=== PATIENT | female | born 1960 | race Caucasian/White ===

== ENCOUNTER 2016-11-18 23:01 | Emergency (ER) | payer BC ==
[~2016-11-18] VITALS: Ht 162.6 cm; Wt 100.0 kg
[2016-11-18] MEDS ORDERED: DAPA5TAB PO (23:14)
[2016-11-18] MEDS ORDERED: LIRA3PEN SQ (23:14)
[2016-11-18] MEDS ORDERED: METF10002 PO (23:14)
[2016-11-18 23:34] LABS: APPEARANCE,URINE CLEAR (CLEAR); GLUCOSE, URINE (UA) >=1000 mg/dL (NEGATIVE); KETONES,URINE NEGATIVE (NEGATIVE); LEUKOCYTE ESTERASE ,URINE NEGATIVE (NEGATIVE); OCCULT BLOOD,URINE NEGATIVE (NEGATIVE); PROTEIN,URINE TRACE (NEGATIVE)
[2016-11-18 23:41] LABS: SQUAMOUS EPITHELIAL CELL,UR Few /LPF (None Seen)
[2016-11-18 23:43] LABS: RBC,URINE 0-2 /HPF (0-2)
[2016-11-19 02:25] VITALS: BP 116/83
[2016-11-19 05:24] LABS: GLUCOSE,POINT OF CARE 351 MG/DL (70-110)
== END 2016-11-19 02:32 | disposition home or self-care (01) ==
LOC: EMS 23:05
DX: N76.0 Acute vaginitis (principal); L25.9 Unspecified contact dermatitis, unspecified cause; E11.9 Type 2 diabetes mellitus without complications
CPT/HCPCS: 82962; 87086; 87106; 99284